=== PATIENT | female | born 1985 | race Caucasian/White ===

== ENCOUNTER 2017-03-14 12:31 | Emergency (ER) | payer OTHER ==
--- NOTE | ~2017-03-14 | CR20 ---
[facility] A Service of [facility] & [facility] / [facility] RADIOLOGY TEXT RESULTS PATIENT: INOCENCIA CARTER LOCATION: SED : [birth year] UNIT #: [id number] AGE: [address]: JORGE MOZNON SEX: F ORDER DR: [id number] [address] [address] [id number] MR#: [id number] Acc #: [id number] NAME: INOCENCIA CARTER : 1985 SEX: F STUDY DATE/TIME: 03/14/2017 12:52 UNIT: SED ROOM: STUDY DESCRIPTION: CR Ankle Min 3 Views Lt Attending Physician: Jorge Monzon Aprn Ordering Physician: Jorge Monzon Aprn Primary Care Physician: [facility], [facility]. MEDICAL IMAGING REPORT This report is preliminary unless electronic signature is present. EXAM Left ankle, 03/14/2017, [facility]. HISTORY 31-year-old female left ankle pain following injury Monday night. Symptoms of pain and swelling getting worse. FINDINGS Three views of the left ankle demonstrate lateral soft tissue swelling. Ankle mortise is preserved. There is no identified fracture. IMPRESSION Negative for fracture. Lateral soft tissue swelling. Dictated by... Pillo Hare M.D. THIS IS AN ELECTRONICALLY VERIFIED REPORT Pillo Hare M.D. at 03/15/2017 9:39 AM FRACISCO/victor manuel TD: 03/14/2017 16:08 JOB #: [id number] MEDICAL IMAGING REPORT Page 1 of 1
[~2017-03-14 12:31] MED LIST: BACTRIM DS TABL1 TA1 PO; BACTRIM DS TABL1 TAB PO; CLINDAMYCIN HC300 MG PO; ELIMITE60 GM TOP; NO MEDICATIONS; PERCOCET5/325 PO; ZITHROMAX500 MG PO
== END 2017-03-14 13:30 | disposition home or self-care (01) ==
LOC: SED 12:31
DX: L03.116 Cellulitis of left lower limb (principal); F17.210 Nicotine dependence, cigarettes, uncomplicated; Z88.0 Allergy status to penicillin
CPT/HCPCS: 73610; 99283